=== PATIENT | male | born 1955 | race African-American/Black ===

== ENCOUNTER 2018-11-29 18:52 | Emergency (ER) | payer MEDICAID ==
[~2018-11-29] VITALS: Ht 165.1 cm; Wt 60.0 kg
[~2018-11-29 18:52] MED LIST: HYDR-1348; [UNRECOGNIZED DRUG - REMARK]
[2018-11-29 20:03] LABS: BASOPHILS % 0.7 % (0.0-2.0); EOSINOPHILS % 2.4 % (0.0-5.0); HEMATOCRIT. 37.3 % (42.0-52.0); HEMOGLOBIN. 12.5 g/dL (14.0-18.0); LYMPHOCYTES % 27.7 % (20.0-50.0); MEAN CORPUSCULAR HEMOGLOBIN 31.8 pg (28.0-32.0); MEAN CORPUSCULAR VOLUME 94.5 fL (80.0-94.0); MEAN PLATELET VOLUME 7.9 fl (7.4-10.4); MONOCYTES % 7.6 % (2.0-8.0); NEUTROPHILS % 61.6 % (40.0-76.0); PLATELET 264 x1000/uL (130-400); RED BLOOD CELL COUNT 3.95 mill/uL (4.7-6.1); RED CELL DISTRIBUTION WIDTH 13.7 % (11.6-14.6)
[2018-11-29 20:07] LABS: CHLORIDE 107 mEq/L (98-107); PROTHROMBIN TIME 10.7 sec (9.6-11.0)
[2018-11-29] MEDS ORDERED: ALBUTEROL (0.083%) 2.5MG/3ML NEB HHN STA (22:46)
[2018-11-29] MEDS ORDERED: IOHEXOL-350 100 ML BOTTLE ONE (23:23)
[2018-11-29 23:52] VITALS: BP 129/74
== END 2018-11-29 23:54 | disposition home or self-care (01) ==
LOC: ER 18:52 → CANBEDREQ 11-30 05:28
DX: R06.02 Shortness of breath (principal); F14.10 Cocaine abuse, uncomplicated; G40.909 Epilepsy, unspecified, not intractable, without status epilepticus; Z98.890 Other specified postprocedural states
CPT/HCPCS: 36415; 70450; 71045; 71275; 80053; 83605; 83880; 84484; 85025; 85610; 93005; 94640; 99284; J7611; Q9967; Z7610

== ENCOUNTER 2024-12-02 16:31 | Inpatient (IN) | payer MEDICAID ==
[~2024-12-02] VITALS: Ht 175.3 cm; Wt 84.8 kg
[2024-12-02 16:36] VITALS: O2SAT 96
[2024-12-02] MEDS: SODIUM CHLORIDE 0.9% 1,000 ML IV ONE ×2 (17:31→20:00)
[2024-12-02 18:14] LABS: BASOPHILS % 0.4 % (0.0-2.0); EOSINOPHILS % 0.2 % (0.0-5.0); HEMATOCRIT. 48.0 % (42.0-52.0); HEMOGLOBIN. 15.5 g/dL (14.0-18.0); LYMPHOCYTES % 21.6 % (20.0-50.0); MEAN PLATELET VOLUME 9.0 fl (7.4-10.4); MONOCYTES % 6.3 % (2.0-8.0); NEUTROPHILS % 71.5 % (40.0-76.0); PLATELET 269 x1000/uL (130-400); RED BLOOD CELL COUNT 5.11 mill/uL (4.7-6.1); RED CELL DISTRIBUTION WIDTH 14.8 % (11.6-14.6)
[2024-12-02 18:31] LABS: TROPONIN I HIGH SENSITIVITY 25 ng/L (3.0-53)
[2024-12-02 18:32] LABS: CREATININE 1.5 mg/dL (0.6-1.3)
[2024-12-02 18:33] LABS: UREA NITROGEN BLOOD 6 mg/dL (9-23)
[2024-12-02 18:34] LABS: ASPARTATE AMINOTRANSFERASE 25 IU/L (<34)
[2024-12-02 18:35] LABS: BILIRUBIN DIRECT 0.3 mg/dL (<=3.0); BILIRUBIN TOTAL 1.2 mg/dL (0.1-1.0); PROTEIN TOTAL 7.3 g/dL (6.0-8.3)
[2024-12-02] MEDS ORDERED: DEXTROSE 50% WATER 50ML SYRINGE IV PRN (22:30)
[2024-12-03] VITALS (7 sets, daily range): BP systolic 101–122; BP diastolic 50–85; PULSE 53–65; RESP 17–21; TEMP 36.1–36.4; O2SAT 95–99
[2024-12-03] MEDS ORDERED: LEVE1000 MT (06:31)
[2024-12-03] MEDS ORDERED: LIP40 MT (06:35)
[2024-12-03] MEDS ORDERED: MULT-1146 MT (06:35)
[2024-12-03] MEDS ORDERED: METF-1150 MT (06:35)
[2024-12-03] MEDS ORDERED: TAMS-54 PO (06:35)
[2024-12-03] MEDS ORDERED: BUDE6HFA IH (06:35)
[2024-12-03] MEDS ORDERED: MV-M1TAB19 PO (06:35)
[2024-12-03] MEDS: BLOOD SUGAR DIAGNOSTIC STRIP TEST SCH (07:20)
[2024-12-03 07:28] LABS: ASPARTATE AMINOTRANSFERASE 24 IU/L (<34); CREATININE 1.0 mg/dL (0.6-1.3); TRIGLYCERIDE 127 mg/dL (0-150); UREA NITROGEN BLOOD 8 mg/dL (9-23)
[2024-12-03 07:29] LABS: LDL CHOLESTEROL 90 mg/dL (5-100)
[2024-12-03 07:30] LABS: BILIRUBIN TOTAL 1.3 mg/dL (0.1-1.0); PROTEIN TOTAL 7.4 g/dL (6.0-8.3)
[2024-12-03] MEDS: INSULIN LISPRO 100 UNITS/ML SUBCUT SCH (07:50)
[2024-12-03 08:12] LABS: HEPATITIS C AB NON REACTIVE (Neg) (Negative)
[2024-12-03 08:15] LABS: BASOPHILS % 0.7 % (0.0-2.0); EOSINOPHILS % 0.7 % (0.0-5.0); HEMATOCRIT. 44.7 % (42.0-52.0); HEMOGLOBIN. 14.7 g/dL (14.0-18.0); LYMPHOCYTES % 35.0 % (20.0-50.0); MEAN PLATELET VOLUME 9.2 fl (7.4-10.4); MONOCYTES % 9.3 % (2.0-8.0); NEUTROPHILS % 54.3 % (40.0-76.0); PLATELET 279 x1000/uL (130-400); RED BLOOD CELL COUNT 4.76 mill/uL (4.7-6.1); RED CELL DISTRIBUTION WIDTH 14.6 % (11.6-14.6)
[2024-12-03] MEDS: ASPIRIN 81MG TABLET PO SCH (08:37)
[2024-12-03] MEDS: LEVETIRACETAM 500MG TABLET PO SCH (08:37)
[2024-12-03] MEDS ORDERED: INFLUENZA VACCINE 05/PF 0.5 ML SYRINGE IM ONE (21:00)
[2024-12-03] MEDS ORDERED: PNEUMOCOCCAL 20-VAL CONJ-DIP CRM 0.5ML IM ONE (21:00)
[2024-12-04] VITALS: BP 105/62; PULSE 51; RESP 18; TEMP 36.1; O2SAT 95
[2024-12-04 02:04] LABS: CLARITY URINE CLEAR (CLEAR); COLOR URINE YELLOW (YELLOW); GLUCOSE URINE NEGATIVE (NEGATIVE); KETONES URINE NEGATIVE (NEGATIVE); LEUKOCYTE ESTERASE URINE NEGATIVE (NEGATIVE); NITRITE URINE NEGATIVE (NEGATIVE); OCCULT BLOOD URINE NEGATIVE (NEGATIVE); PH URINE 5.5 (4.5-8.0); PROTEIN URINE NEGATIVE (NEGATIVE); SPECIFIC GRAVITY URINE 1.020 (1.005-1.030); UROBILINOGEN URINE 0.2 E.U./dL (0.2-1.0)
[2024-12-04 03:02] LABS: *AMPHETAMINES SCREEN URINE NEGATIVE (NEGATIVE); *BARBITURATES SCREEN URINE NEGATIVE (NEGATIVE); *BENZODIAZEPINES SCREEN URINE NEGATIVE (NEGATIVE); *COCAINE SCREEN URINE NEGATIVE (NEGATIVE); CANNABINOID URINE SCREEN NEGATIVE (NEGATIVE); ECSTASY MDMA SCREEN URINE NEGATIVE (NEGATIVE); METHADONE URINE SCREEN NEGATIVE (NEGATIVE); OPIATES URINE SCREEN NEGATIVE (NEGATIVE); PHENCYCLIDINE URINE SCREEN NEGATIVE (NEGATIVE)
[2024-12-04 04:00] VITALS: BP 110/67; PULSE 51; RESP 16; TEMP 36.2; O2SAT 95
[2024-12-04 08:32] VITALS: BP 114/73; PULSE 50; RESP 18; TEMP 36.2; O2SAT 96
[2024-12-04 11:51] VITALS: BP 101/64; PULSE 54; RESP 16; TEMP 36.3; O2SAT 99
[2024-12-04 16:00] VITALS: BP 113/78; PULSE 53; RESP 18; TEMP 36.4; O2SAT 98
[2024-12-04 19:09] LABS: BASOPHILS % 0.4 % (0.0-2.0); EOSINOPHILS % 1.4 % (0.0-5.0); HEMATOCRIT. 45.3 % (42.0-52.0); HEMOGLOBIN. 14.8 g/dL (14.0-18.0); LYMPHOCYTES % 36.8 % (20.0-50.0); MEAN PLATELET VOLUME 9.3 fl (7.4-10.4); MONOCYTES % 6.6 % (2.0-8.0); NEUTROPHILS % 54.8 % (40.0-76.0); PLATELET 267 x1000/uL (130-400); RED BLOOD CELL COUNT 4.84 mill/uL (4.7-6.1); RED CELL DISTRIBUTION WIDTH 14.6 % (11.6-14.6)
[2024-12-04 19:18] LABS: CREATININE 0.8 mg/dL (0.6-1.3); UREA NITROGEN BLOOD 6 mg/dL (9-23)
[2024-12-04 20:00] VITALS: BP 112/62; PULSE 56; RESP 17; TEMP 36.4; O2SAT 95
[2024-12-05] VITALS: BP 119/71; PULSE 56; RESP 16; TEMP 36.6; O2SAT 95
[2024-12-05 04:00] VITALS: BP 128/66; PULSE 54; RESP 17; TEMP 36.4; O2SAT 95
[2024-12-05 08:00] VITALS: BP 109/56; PULSE 56; RESP 18; TEMP 36.4; O2SAT 96
[2024-12-05 11:43] VITALS: BP 99/57; PULSE 58; RESP 16; TEMP 36.6; O2SAT 99
[2024-12-05 16:26] VITALS: BP 125/72; PULSE 50; RESP 18; TEMP 36.1
[2024-12-05 20:00] VITALS: BP 101/55; PULSE 51; RESP 18; TEMP 35.9; O2SAT 95
[2024-12-06] VITALS: BP 108/59; PULSE 54; RESP 18; TEMP 35.7; O2SAT 95
[2024-12-06 04:00] VITALS: BP 96/72; PULSE 50; RESP 19; TEMP 35.6; O2SAT 94
[2024-12-06 07:16] LABS: BASOPHILS % 0.4 % (0.0-2.0); EOSINOPHILS % 2.5 % (0.0-5.0); HEMATOCRIT. 43.9 % (42.0-52.0); HEMOGLOBIN. 14.6 g/dL (14.0-18.0); LYMPHOCYTES % 46.9 % (20.0-50.0); MEAN PLATELET VOLUME 9.0 fl (7.4-10.4); MONOCYTES % 5.8 % (2.0-8.0); NEUTROPHILS % 44.4 % (40.0-76.0); PLATELET 310 x1000/uL (130-400); RED BLOOD CELL COUNT 4.74 mill/uL (4.7-6.1); RED CELL DISTRIBUTION WIDTH 14.4 % (11.6-14.6)
[2024-12-06 07:33] LABS: CREATININE 0.8 mg/dL (0.6-1.3)
[2024-12-06 07:35] LABS: UREA NITROGEN BLOOD 7 mg/dL (9-23)
[2024-12-06 08:00] VITALS: BP 102/55; PULSE 63; RESP 16; TEMP 36.2; O2SAT 95
[2024-12-06 12:00] VITALS: BP 114/78; PULSE 61; RESP 17; TEMP 36.3; O2SAT 98
[2024-12-06 16:00] VITALS: BP 114/78; PULSE 65; RESP 16; TEMP 36.1; O2SAT 96
[2024-12-06 17:30] VITALS: BP 114/78; PULSE 61; RESP 17; TEMP 97.4
== END 2024-12-06 17:50 | disposition home or self-care (01) | DRG 48 ==
LOC: ER 16:31 → 6WST 20:06 → EDBEDREQ 20:37 → EDBEDREQTM 20:37 → ENRESERV 20:45 → 6WST 12-03 04:18
PROVIDERS: ADMIT Internal Medicine; ATTEND Internal Medicine
DX: G90.89 Other disorders of autonomic nervous system (principal); N17.0 Acute kidney failure with tubular necrosis; I27.21 Secondary pulmonary arterial hypertension; F17.210 Nicotine dependence, cigarettes, uncomplicated; E11.8 Type 2 diabetes mellitus with unspecified complications; M47.819 Spondylosis without myelopathy or radiculopathy, site unspecified; G93.89 Other specified disorders of brain; H54.62 Unqualified visual loss, left eye, normal vision right eye; Z79.51 Long term (current) use of inhaled steroids; Z86.73 Personal history of transient ischemic attack (TIA), and cerebral infarction without residual deficits; Z98.890 Other specified postprocedural states; Z79.899 Other long term (current) drug therapy
CPT/HCPCS: 36415; 70551; 71045; 71275; 80048; 80053; 80061; 80076; 80305; 81003; 82140; 82550; 82962; 83036; 83735; 83880; 84484; 85025; 85379; 86705; 87340; 90686; 90732; 97162; 99285; A4606; J1815; J7030